=== PATIENT | male | born 1995 | race Caucasian/White ===

== ENCOUNTER 2025-09-19 12:16 | Emergency (ER) | payer MEDICAID ==
[~2025-09-19] VITALS: Ht 165.1 cm; Wt 64.0 kg
[2025-09-19 12:21] VITALS: O2SAT 100
[2025-09-19 13:00] LABS: MEAN PLATELET VOLUME 8.1 fl (7.4-10.4)
[2025-09-19 13:04] LABS: BASOPHILS % 0.9 % (0.0-2.0); EOSINOPHILS % 3.9 % (0.0-5.0); HEMATOCRIT. 48.3 % (42.0-52.0); HEMOGLOBIN. 16.4 g/dL (14.0-18.0); LYMPHOCYTES % 48.2 % (20.0-50.0); MONOCYTES % 12.5 % (2.0-8.0); NEUTROPHILS % 34.5 % (40.0-76.0); PLATELET 194 x1000/uL (130-400); RED BLOOD CELL COUNT 5.05 mill/uL (4.7-6.1); RED CELL DISTRIBUTION WIDTH 13.8 % (11.6-14.6)
[2025-09-19 13:10] LABS: CREATININE 0.9 mg/dL (0.6-1.3); UREA NITROGEN BLOOD < 5 mg/dL (9-23)
[2025-09-19 13:16] LABS: TROPONIN I HIGH SENSITIVITY < 4 ng/L (3.0-53)
[2025-09-19] MEDS: PANTOPRAZOLE 40MG DR TABLET PO SCH (16:38)
[2025-09-19] MEDS: MAGNESIUM/ALUMINUM HYDROXIDE/SIMETHICONE 30ML UDC PO ONE (16:38)
[2025-09-19] MEDS: ACETAMINOPHEN 325MG TABLET PO ONE (16:39)
[2025-09-19] MEDS ORDERED: PANT40SU MT (17:00)
[2025-09-19] MEDS ORDERED: TOPUD MT (17:00)
[2025-09-19] MEDS ORDERED: MAG-55 MT (17:00)
[2025-09-19 17:12] LABS: TROPONIN I HIGH SENSITIVITY < 4 ng/L (3.0-53)
[2025-09-19 17:20] VITALS: BP 134/87; PULSE 95; RESP 16; TEMP 36.9; O2SAT 99
== END 2025-09-19 17:21 | disposition home or self-care (01) ==
LOC: ER 12:16
DX: K21.9 Gastro-esophageal reflux disease without esophagitis (principal); J45.909 Unspecified asthma, uncomplicated; Z90.49 Acquired absence of other specified parts of digestive tract; Z79.899 Other long term (current) drug therapy
CPT/HCPCS: 36415; 71045; 80048; 84484; 85025; 93005; 99284